=== PATIENT | male | born 1950 | race Hispanic/Latino ===

== ENCOUNTER 2016-07-25 09:29 | Outpatient (CLI) | payer MEDICARE, OTHER ==
[2016-07-25 12:56] LABS: Bilirubin Negative (Negative); Blood, Urine Negative (Negative); Glucose, Urine (Dipstick) Negative (Negative); Ketone, Urine Negative (Negative); Nitrite Negative (Negative); Protein, Urine (Dipstick) Negative (Neg-Trace); Urobilinogen 0.2 mg/dL (0.2-1.0)
[2016-07-25 13:05] LABS: ALT (SGPT) 33 U/L (0-55); AST (SGOT) 22 U/L (5-34); Alkaline Phosphatase 84 U/L (40-150); Anion Gap 14 mmol/L (10-20); BUN (Urea Nitrogen) 17 mg/dL (8.4-25.7); Bilirubin, Total 0.8 mg/dL (0.2-1.2); Calc. Creatinine Clearance 0 mL/min (70-130); Calcium 8.8 mg/dL (7.8-10.44); Carbon Dioxide 25 mmol/L (23-31); Chloride 104 mmol/L (98-107); Estimated GFR-MDRD 83; LDL Cholesterol, Calculated 143 mg/dL; Protein, Total 7.3 g/dL (5.8-8.1)
[2016-07-25 14:10] LABS: Mean Platelet Volume 7.2 fL (7.4-10.4); Neutrophil 34 % (42-75); Red Blood Cell (RBC) Count 5.58 mill/uL (4.70-6.10)
== END 2016-07-25 09:30 | disposition home or self-care (01) ==
LOC: NAVSJIPCSP 09:29
PROVIDERS: ATTEND Internal Medicine
DX: Z12.5 Encounter for screening for malignant neoplasm of prostate (principal); M17.9 Osteoarthritis of knee, unspecified; I11.9 Hypertensive heart disease without heart failure; E78.5 Hyperlipidemia, unspecified; Z79.899 Other long term (current) drug therapy
CPT/HCPCS: 36415; 80053; 80061; 81003; 85025; G0103

== ENCOUNTER 2016-10-22 08:45 | Outpatient (CLI) | payer MEDICARE, OTHER ==
[2016-10-22 13:38] LABS: Cardiac Risk 4.6 (Less than 4.5)
== END 2016-10-22 08:46 ==
LOC: NAVSJIPCSP 08:45
PROVIDERS: ATTEND Internal Medicine
DX: E78.5 Hyperlipidemia, unspecified (principal); M17.9 Osteoarthritis of knee, unspecified
CPT/HCPCS: 36415; 80061

== ENCOUNTER 2017-01-24 08:12 | Outpatient (CLI) | payer MEDICARE, OTHER ==
[2017-01-24 13:49] LABS: Cardiac Risk 4.9 (Less than 4.5)
== END 2017-01-24 08:13 | disposition home or self-care (01) ==
LOC: NAVSJIPCSP 08:12
PROVIDERS: ATTEND Internal Medicine
DX: E78.5 Hyperlipidemia, unspecified (principal)
CPT/HCPCS: 36415; 80061